=== PATIENT | female | born 1995 | race Caucasian/White ===

== ENCOUNTER 2016-09-04 14:15 | Inpatient (IN) | payer OTHER ==
[~2016-09-04] VITALS: Ht 172.7 cm; Wt 77.7 kg
[~2016-09-04 14:15] MED LIST: CITALOPRAM HBR20 MG PO; HYCODAN SYRUP480 ML PO; MACROBID100 MG PO; PRENATAL TABLE1 EAC3 PO; REGLAN10 MG PO
[2016-09-04 14:50] LABS: HEMATOCRIT 40.3 % (36.0-46.0); MCH 27.3 PG (29.0-34.0); MCHC 32.8 G/DL (30.0-36.0); MCV 83.4 FL (83-99); MEAN PLAT.VOLUME 8.5 uM^3 (9.5-12.4); PLATELET COUNT 423 K/uL (156-360); RBC DIS.WIDTH-CV 14.1 % (11.8-14.6); RBC DIS.WIDTH-SD 42.4 % (39-53); RED BLOOD COUNT 4.83 M/uL (3.80-5.20); WHITE BLOOD COUNT 8.6 K/uL (4.1-10.2)
[2016-09-04 15:00] LABS: CHLORIDE 104 mEq/L (99-109); SODIUM 137 mEq/L (136-147)
[2016-09-04 15:02] LABS: GLUCOSE 86 mg/dL (70-99)
[2016-09-04 15:03] LABS: ANION GAP 8 MEQ/L (2-14)
[2016-09-04 15:05] LABS: SERUM ETHYL ALCOHOL < 10 mg/dL
[2016-09-04 15:06] LABS: GFR ESTIMATE (CALCULATED) > 59 mL/min/
[2016-09-04 15:07] LABS: UREA NITROGEN (BUN) 10 mg/dL (9-23)
[2016-09-04] MEDS ORDERED: IBUPROFEN600 MG PO (15:45)
[2016-09-04 17:03] LABS: INTERNAL CONTROL VALID? YES
[2016-09-04 17:09] LABS: AMPHETAMINE NEGATIVE (500 ng/mL); BARBITURATES NEGATIVE (200 ng/mL); BENZODIAZEPINES NEGATIVE (150 ng/mL); COCAINE NEGATIVE (150 ng/mL); INTERNAL CONTROLS VALID? YES; METHADONE NEGATIVE (200 ng/mL); METHAMPHETAMINE NEGATIVE (500 ng/mL); OPIATES (MORPHINE) NEGATIVE (100 ng/mL); OXYCODONE NEGATIVE (100 ng/mL); PHENCYCLIDINE NEGATIVE (25 ng/mL); PROPOXYPHENE NEGATIVE (300 ng/mL); THC CANNABINOIDS PRESUMPTIVE POSITIVE (50 ng/mL); TRICYCLIC ANTIDEPRESSANTS NEGATIVE (300 ng/mL)
[2016-09-04 18:37] VITALS: BP 122/79
[2016-09-04] MEDS ORDERED: NICORETTE BC (19:51)
[2016-09-04] MEDS ORDERED: ZOLPIDEM TARTRAT5 MG PO (19:52)
[2016-09-05 08:06] VITALS: BP 123/73
[2016-09-05 16:37] VITALS: BP 133/90
[2016-09-06 07:59] VITALS: BP 104/59
[2016-09-06 15:48] VITALS: BP 134/77
[2016-09-07 07:34] VITALS: BP 133/63
[2016-09-07 15:34] VITALS: BP 121/50
[2016-09-08 07:44] VITALS: BP 113/53
[2016-09-08] MEDS ORDERED: AMOXICILLIN500 MG PO (09:41)
[2016-09-08] MEDS ORDERED: DULOXETINE HCL60 MG PO (09:41)
== END 2016-09-08 12:57 | disposition home or self-care (01) | DRG 885 ==
LOC: EME 14:15 → EDOF 15:36 → 1WEST 15:36
PROVIDERS: Emergency Medicine
DX: F33.9 Major depressive disorder, recurrent, unspecified (principal); K04.7 Periapical abscess without sinus; F19.10 Other psychoactive substance abuse, uncomplicated; F60.9 Personality disorder, unspecified; F12.90 Cannabis use, unspecified, uncomplicated
CPT/HCPCS: 80048; 84703; 85027; 90839; 97150 GO; 97166 GO; 99281; 99285; G0480; Q0177

== ENCOUNTER 2017-02-04 13:51 | Emergency (ER) | payer SELFPAY ==
[~2017-02-04] VITALS: Ht 172.7 cm; Wt 75.3 kg
[~2017-02-04 13:51] MED LIST changes: +AMOXICILLIN500 MG PO; +DULOXETINE HCL60 MG PO; +IBUPROFEN600 MG PO; +NICORETTE BC; +ZOLPIDEM TARTRAT5 MG PO
[2017-02-04 14:59] LABS: HEMATOCRIT 42.1 % (36.0-46.0); MCHC 34.2 G/DL (30.0-36.0); MCV 81.9 FL (83-99); MEAN PLAT.VOLUME 8.5 uM^3 (9.5-12.4); PLATELET COUNT 363 K/uL (156-360); RBC DIS.WIDTH-SD 38.9 % (39-53); RED BLOOD COUNT 5.14 M/uL (3.80-5.20); WHITE BLOOD COUNT 9.5 K/uL (4.1-10.2)
[2017-02-04 15:09] LABS: CHLORIDE 101 mEq/L (99-109); POTASSIUM 3.8 mEq/L (3.7-5.4); SODIUM 133 mEq/L (136-147)
[2017-02-04 15:12] LABS: GLUCOSE 87 mg/dL (70-99)
[2017-02-04 15:13] LABS: ANION GAP 11 MEQ/L (2-14); TOTAL BILIRUBIN 0.4 mg/dL (0.0-1.0)
[2017-02-04 15:15] LABS: ALKALINE PHOSPHATASE 59 IU/L (3-129); GFR ESTIMATE (CALCULATED) > 59 mL/min/
[2017-02-04 15:16] LABS: UREA NITROGEN (BUN) 5 mg/dL (9-23)
[2017-02-04 15:19] LABS: LIPASE 14 U/L (1.0-51.0)
[2017-02-04 15:48] LABS: QUANTITATIVE HCG 28718.9 MIU/ML
[2017-02-04] MEDS ORDERED: ZOFRAN ODT4 MG PO (15:54)
[2017-02-04 16:18] LABS: ADD MIUA? YES; BILIRUBIN NEGATIVE; BLOOD NEGATIVE; COLOR YELLOW ((YELLOW)); GLUCOSE (STRIP) NEGATIVE; KETONES 80; LEUKOCYTES NEGATIVE; NITRITE NEGATIVE; PROTEIN (STRIP) 100; SPECIFIC GRAVITY 1.033 (1.000-1.030); UROBILINOGEN 0.2 MG/DL (0.2-1.0)
[2017-02-04 16:26] LABS: BACTERIA RARE /HPF; EPITHELIAL CELLS RARE /HPF; MUCUS 3+ /LPF; WHITE BLOOD CELLS 0-5 /HPF (0-5)
[2017-02-04 17:15] VITALS: BP 133/82
== END 2017-02-04 17:22 | disposition home or self-care (01) ==
LOC: EME 13:51
PROVIDERS: Nurse Practitioner Family
DX: O21.0 Mild hyperemesis gravidarum (principal); O99.511 Diseases of the respiratory system complicating pregnancy, first trimester; J06.9 Acute upper respiratory infection, unspecified; J45.909 Unspecified asthma, uncomplicated; Z87.891 Personal history of nicotine dependence
CPT/HCPCS: 71020; 80053; 81003; 83690; 84702; 85027; 99281; 99285; J2405; J7030

== ENCOUNTER 2017-04-13 15:56 | Emergency (ER) | payer OTHER ==
[~2017-04-13] VITALS: Ht 172.7 cm; Wt 77.5 kg
[~2017-04-13 15:56] MED LIST changes: +ZOFRAN ODT4 MG PO
[2017-04-13 16:45] LABS: EOSINOPHIL (%) 0.4 % (0-5); EOSINOPHIL COUNT 0.1 K/uL (0-0.3); HEMATOCRIT 35.4 % (36.0-46.0); IMMATURE GRANULOCYTE (%) 0.6 % (0.0-0.7); IMMATURE GRANULOCYTE COUNT 0.1 K/uL; INSTRUMENT ABS NEUTROPHIL CT 9.5 K/uL; LYMPHOCYTE COUNT 2.9 K/uL (1.0-2.8); MCH 29.3 PG (29.0-34.0); MCHC 34.2 G/DL (30.0-36.0); MCV 85.7 FL (83-99); MEAN PLAT.VOLUME 8.9 uM^3 (9.5-12.4); MONOCYTE (%) 4.6 % (3-12); MONOCYTE COUNT 0.6 K/uL (0-0.8); NEUTROPHIL COUNT 9.5 K/uL (1.8-6.4); PLATELET COUNT 311 K/uL (156-360); RBC DIS.WIDTH-CV 13.5 % (11.8-14.6); RBC DIS.WIDTH-SD 42.5 % (39-53); RED BLOOD COUNT 4.13 M/uL (3.80-5.20); WHITE BLOOD COUNT 13.2 K/uL (4.1-10.2)
[2017-04-13 16:54] LABS: CHLORIDE 103 mEq/L (99-109); POTASSIUM 3.8 mEq/L (3.7-5.4); SODIUM 134 mEq/L (136-147)
[2017-04-13 16:56] LABS: GLUCOSE 75 mg/dL (70-99)
[2017-04-13 16:58] LABS: ANION GAP 10 MEQ/L (2-14); TOTAL BILIRUBIN 0.4 mg/dL (0.0-1.0)
[2017-04-13 17:00] LABS: ALKALINE PHOSPHATASE 49 IU/L (3-129); GFR ESTIMATE (CALCULATED) > 59 mL/min/
[2017-04-13 17:01] LABS: UREA NITROGEN (BUN) 7 mg/dL (9-23)
[2017-04-13 20:22] LABS: ADD MIUA? NO; BILIRUBIN NEGATIVE; BLOOD NEGATIVE; COLOR YELLOW ((YELLOW)); GLUCOSE (STRIP) NEGATIVE; KETONES 80; LEUKOCYTES NEGATIVE; NITRITE NEGATIVE; PROTEIN (STRIP) NEGATIVE; UCUL ADDED? NO; UROBILINOGEN 0.2 MG/DL (0.2-1.0)
[2017-04-13] MEDS ORDERED: ONDANSETRON ODT4 MG PO (20:37)
[2017-04-13 21:35] VITALS: BP 132/89
== END 2017-04-13 21:37 | disposition home or self-care (01) ==
LOC: EME 15:56
PROVIDERS: Emergency Medicine
DX: O21.0 Mild hyperemesis gravidarum (principal); R10.31 Right lower quadrant pain; R05 Cough; Z3A.21 21 weeks gestation of pregnancy; Z87.891 Personal history of nicotine dependence
CPT/HCPCS: 80053; 81003; 85025; 99281; 99285; J2405; J7030

== ENCOUNTER 2017-06-16 10:58 | Outpatient (CLI) | payer OTHER ==
[~2017-06-16 10:58] MED LIST changes: +ONDANSETRON ODT4 MG PO
[2017-06-16 11:20] VITALS: BP 112/65
[2017-06-16 12:47] LABS: BASOPHIL (%) 0.2 % (0-1); EOSINOPHIL (%) 0.6 % (0-5); EOSINOPHIL COUNT 0.1 K/uL (0-0.3); HEMATOCRIT 32.4 % (36.0-46.0); HEMOGLOBIN 10.8 G/DL (11.9-15.5); IMMATURE GRANULOCYTE (%) 0.5 % (0.0-0.7); LYMPHOCYTE (%) 22.2 % (15-42); LYMPHOCYTE COUNT 3.1 K/uL (1.0-2.8); MCH 28.4 PG (29.0-34.0); MCHC 33.3 G/DL (30.0-36.0); MCV 85.3 FL (83-99); MONOCYTE (%) 4.8 % (3-12); MONOCYTE COUNT 0.7 K/uL (0-0.8); NEUTROPHIL (%) 71.7 % (45-76); PLATELET COUNT 280 K/uL (156-360); RBC DIS.WIDTH-CV 12.9 % (11.8-14.6); RBC DIS.WIDTH-SD 40.2 % (39-53)
[2017-06-16 13:33] LABS: BENZODIAZEPINES, URINE SCREEN Negative (200 ng/mL)
[2017-06-16 15:22] VITALS: BP 115/57
== END 2017-06-16 16:30 | disposition home or self-care (01) ==
LOC: LDRP-OP 10:58 → 2WEST 10:59
PROVIDERS: Advanced Practice Midwife
DX: O99.89 Other specified diseases and conditions complicating pregnancy, childbirth and the puerperium (principal); O99.343 Other mental disorders complicating pregnancy, third trimester; F41.8 Other specified anxiety disorders; Z87.891 Personal history of nicotine dependence
CPT/HCPCS: 59025; 80306 90; 81003; 85025; 87502; G0378; J7030

== ENCOUNTER 2017-07-13 10:45 | Outpatient (CLI) | payer OTHER ==
[2017-07-13 10:47] VITALS: BP 139/65
[2017-07-13 11:25] LABS: APPEARANCE CLOUDY ((CLEAR)); BILIRUBIN NEGATIVE; BLOOD NEGATIVE; COLOR YELLOW ((YELLOW)); GLUCOSE (STRIP) NEGATIVE; KETONES NEGATIVE; LEUKOCYTES TRACE; NITRITE NEGATIVE; PROTEIN (STRIP) 30; SPECIFIC GRAVITY 1.018 (1.000-1.030); UROBILINOGEN 0.2 MG/DL (0.2-1.0)
[2017-07-13 11:45] LABS: AMORPHOUS PHOSPHATE CRYSTALS 3+; BACTERIA 2+ /HPF; EPITHELIAL CELLS 3+ /HPF; MUCUS NONE SEEN /LPF; RED BLOOD CELLS 0-5 /HPF (0-5); UCUL ADDED? YES; WHITE BLOOD CELLS 0-5 /HPF (0-5)
[2017-07-13 11:59] LABS: AMPHETAMINE NEGATIVE (500 ng/mL); BARBITURATES NEGATIVE (200 ng/mL); BENZODIAZEPINES NEGATIVE (150 ng/mL); BUPRENORPHINE NEGATIVE (10 ng/mL); COCAINE NEGATIVE (150 ng/mL); METHADONE NEGATIVE (200 ng/mL); METHAMPHETAMINE NEGATIVE (500 ng/mL); OPIATES (MORPHINE) NEGATIVE (100 ng/mL); OXYCODONE NEGATIVE (100 ng/mL); PHENCYCLIDINE NEGATIVE (25 ng/mL); PROPOXYPHENE NEGATIVE (300 ng/mL); THC CANNABINOIDS PRESUMPTIVE POSITIVE (50 ng/mL); TRICYCLIC ANTIDEPRESSANTS NEGATIVE (300 ng/mL)
[2017-07-13 12:20] LABS: BASOPHIL (%) 0.2 % (0-1); EOSINOPHIL (%) 0.4 % (0-5); EOSINOPHIL COUNT 0.1 K/uL (0-0.3); HEMATOCRIT 34.8 % (36.0-46.0); HEMOGLOBIN 11.4 G/DL (11.9-15.5); IMMATURE GRANULOCYTE (%) 0.5 % (0.0-0.7); LYMPHOCYTE (%) 22.6 % (15-42); LYMPHOCYTE COUNT 2.9 K/uL (1.0-2.8); MCH 27.5 PG (29.0-34.0); MCHC 32.8 G/DL (30.0-36.0); MCV 84.1 FL (83-99); MONOCYTE (%) 5.7 % (3-12); MONOCYTE COUNT 0.7 K/uL (0-0.8); NEUTROPHIL (%) 70.6 % (45-76); PLATELET COUNT 304 K/uL (156-360); RBC DIS.WIDTH-CV 13.1 % (11.8-14.6); RBC DIS.WIDTH-SD 39.9 % (39-53); RED BLOOD COUNT 4.14 M/uL (3.80-5.20); WHITE BLOOD COUNT 12.7 K/uL (4.1-10.2)
[2017-07-13] MEDS ORDERED: CYCLOBENZAPRINE10 MG PO (12:26)
[2017-07-13] MEDS ORDERED: KEFLEX500 MG PO (12:26)
[2017-07-13 12:50] LABS: ALBUMIN 3.4 G/DL (3.2-4.8); ALKALINE PHOSPHATASE 115 IU/L (3-129); ALT (GPT) 9 IU/L (3-49); AST (GOT) 14 IU/L (2-34); CHLORIDE 103 MEQ/L (99-109); CREATININE 0.4 MG/DL (0.6-1.3); GFR ESTIMATE (CALCULATED) > 59 mL/min/; GLUCOSE 80 mg/dL (70-99); SODIUM 136 MEQ/L (136-147); TOTAL BILIRUBIN 0.4 MG/DL (0.0-1.0); TOTAL PROTEIN 6.3 G/DL (6.4-8.3); UREA NITROGEN (BUN) 7 mg/dL (9-23)
== END 2017-07-13 15:15 | disposition home or self-care (01) ==
LOC: LDRP-OP 10:45 → 2WEST 10:46 → LDRP-OP 09-18 20:18
PROVIDERS: Obstetrics & Gynecology
DX: O99.89 Other specified diseases and conditions complicating pregnancy, childbirth and the puerperium (principal); M54.2 Cervicalgia; M25.512 Pain in left shoulder; M54.5 Low back pain; M79.605 Pain in left leg; O26.893 Other specified pregnancy related conditions, third trimester; R05 Cough; Z3A.34 34 weeks gestation of pregnancy; O09.33 Supervision of pregnancy with insufficient antenatal care, third trimester; O99.323 Drug use complicating pregnancy, third trimester; F12.90 Cannabis use, unspecified, uncomplicated; Z91.410 Personal history of adult physical and sexual abuse; O99.343 Other mental disorders complicating pregnancy, third trimester; F32.9 Major depressive disorder, single episode, unspecified
CPT/HCPCS: 59025; 71046; 80053; 81003; 84999; 85025; 87086; G0378

== ENCOUNTER 2017-07-18 11:15 | Outpatient (CLI) | payer OTHER ==
[~2017-07-18] VITALS: Ht 172.7 cm; Wt 62.3 kg
[~2017-07-18 11:15] MED LIST changes: +CYCLOBENZAPRINE10 MG PO; +KEFLEX500 MG PO
[2017-07-18 15:15] VITALS: BP 109/55
[2017-07-18 15:16] LABS: BASOPHIL (%) 0.2 % (0-1); EOSINOPHIL (%) 0.5 % (0-5); EOSINOPHIL COUNT 0.1 K/uL (0-0.3); HEMATOCRIT 31.4 % (36.0-46.0); HEMOGLOBIN 10.5 G/DL (11.9-15.5); IMMATURE GRANULOCYTE (%) 0.6 % (0.0-0.7); LYMPHOCYTE (%) 25.4 % (15-42); LYMPHOCYTE COUNT 3.2 K/uL (1.0-2.8); MCH 28.3 PG (29.0-34.0); MCHC 33.4 G/DL (30.0-36.0); MCV 84.6 FL (83-99); MONOCYTE (%) 5.9 % (3-12); MONOCYTE COUNT 0.8 K/uL (0-0.8); NEUTROPHIL (%) 67.4 % (45-76); NEUTROPHIL COUNT 8.6 K/uL (1.8-6.4); PLATELET COUNT 289 K/uL (156-360); RBC DIS.WIDTH-CV 13.4 % (11.8-14.6); RBC DIS.WIDTH-SD 41.4 % (39-53); RED BLOOD COUNT 3.71 M/uL (3.80-5.20); WHITE BLOOD COUNT 12.7 K/uL (4.1-10.2)
== END 2017-07-18 18:30 | disposition home or self-care (01) ==
LOC: EME 11:15 → LDRP-OP 11:15 → EME 14:26 → EDSTATUS 14:27 → 2WEST 14:28
PROVIDERS: Nurse Practitioner
DX: O9A.213 Injury, poisoning and certain other consequences of external causes complicating pregnancy, third trimester (principal); O99.513 Diseases of the respiratory system complicating pregnancy, third trimester; S16.1XXA Strain of muscle, fascia and tendon at neck level, initial encounter; S30.0XXA Contusion of lower back and pelvis, initial encounter; Z3A.35 35 weeks gestation of pregnancy; J45.909 Unspecified asthma, uncomplicated; Z87.891 Personal history of nicotine dependence; W10.9XXA Fall (on) (from) unspecified stairs and steps, initial encounter
CPT/HCPCS: 59025; 72040; 72100; 72125; 76815; 85025; 85460; 99281; 99285; G0378

== ENCOUNTER 2017-07-20 13:07 | Inpatient (IN) | payer OTHER ==
[~2017-07-20] VITALS: Ht 172.7 cm; Wt 73.4 kg
[2017-07-20 13:42] LABS: HEMATOCRIT 33.5 % (36.0-46.0); HEMOGLOBIN 11.4 G/DL (11.9-15.5); MCH 28.5 PG (29.0-34.0); MCV 83.8 FL (83-99); PLATELET COUNT 292 K/uL (156-360); RBC DIS.WIDTH-CV 13.4 % (11.8-14.6); RBC DIS.WIDTH-SD 41.1 % (39-53); WHITE BLOOD COUNT 13.2 K/uL (4.1-10.2)
[2017-07-20 13:57] LABS: CHLORIDE 106 mEq/L (99-109); POTASSIUM 3.8 mEq/L (3.7-5.4); SODIUM 135 mEq/L (136-147)
[2017-07-20 13:58] LABS: GLUCOSE 73 mg/dL (70-99)
[2017-07-20 14:02] LABS: CREATININE 0.6 mg/dL (0.6-1.3); GFR ESTIMATE (CALCULATED) > 59 mL/min/; SERUM ETHYL ALCOHOL < 10 mg/dL
[2017-07-20 14:03] LABS: UREA NITROGEN (BUN) 4 mg/dL (9-23)
[2017-07-20 15:15] LABS: COCAINE NEGATIVE (150 ng/mL); PHENCYCLIDINE NEGATIVE (25 ng/mL); THC CANNABINOIDS PRESUMPTIVE POSITIVE (50 ng/mL)
[2017-07-20 15:16] LABS: AMPHETAMINE NEGATIVE (500 ng/mL); BARBITURATES NEGATIVE (200 ng/mL); BENZODIAZEPINES NEGATIVE (150 ng/mL); BUPRENORPHINE NEGATIVE (10 ng/mL); METHADONE NEGATIVE (200 ng/mL); METHAMPHETAMINE NEGATIVE (500 ng/mL); OPIATES (MORPHINE) NEGATIVE (100 ng/mL); OXYCODONE NEGATIVE (100 ng/mL); PROPOXYPHENE NEGATIVE (300 ng/mL); TRICYCLIC ANTIDEPRESSANTS PRESUMPTIVE POSITIVE (300 ng/mL)
[2017-07-20 16:33] VITALS: BP 122/84
[2017-07-20] MEDS ORDERED: CELEXA10 MG PO (16:41)
[2017-07-20] MEDS ORDERED: TRAZODONE HCL50 MG PO (16:43)
[2017-07-20 16:44] VITALS: BP 122/84
[2017-07-21 09:41] VITALS: BP 120/67
[2017-07-21 16:19] VITALS: BP 117/56
[2017-07-22 08:02] VITALS: BP 116/59
[2017-07-22] MEDS ORDERED: PROMETHAZINE HC25 M1 PO (09:12)
[2017-07-22] MEDS ORDERED: CITALOPRAM HBR10 MG PO (09:12)
[2017-07-22] MEDS ORDERED: PRENATAL VITAM1 EAC6 PO (09:12)
== END 2017-07-22 10:55 | disposition home or self-care (01) | DRG 781 ==
LOC: EME 13:07 → EDOF 14:46 → 1WEST 14:46 → ENRESERV 16:10 → 1WEST 16:22
PROVIDERS: Emergency Medicine Emergency Medical Services
DX: O99.343 Other mental disorders complicating pregnancy, third trimester (principal); F33.0 Major depressive disorder, recurrent, mild; R45.851 Suicidal ideations; F60.3 Borderline personality disorder; R44.0 Auditory hallucinations; Z91.14 Patient's other noncompliance with medication regimen; O99.323 Drug use complicating pregnancy, third trimester; F12.90 Cannabis use, unspecified, uncomplicated; O99.513 Diseases of the respiratory system complicating pregnancy, third trimester; J45.909 Unspecified asthma, uncomplicated; O99.353 Diseases of the nervous system complicating pregnancy, third trimester; G43.909 Migraine, unspecified, not intractable, without status migrainosus; O99.89 Other specified diseases and conditions complicating pregnancy, childbirth and the puerperium; M54.9 Dorsalgia, unspecified; Z87.891 Personal history of nicotine dependence; Z91.419 Personal history of unspecified adult abuse
CPT/HCPCS: 80048; 84999; 85027; 90837; 97150 GO; 97166 GO; 99281; 99284; G0480; Q0169

== ENCOUNTER 2017-08-01 12:35 | Emergency (ER) | payer OTHER ==
[~2017-08-01] VITALS: Ht 172.7 cm; Wt 81.6 kg
[~2017-08-01 12:35] MED LIST changes: +CELEXA10 MG PO; +CITALOPRAM HBR10 MG PO; +PRENATAL VITAM1 EAC6 PO; +PROMETHAZINE HC25 M1 PO; +TRAZODONE HCL50 MG PO
[2017-08-01 15:44] VITALS: BP 117/70
== END 2017-08-01 15:50 | disposition home or self-care (01) ==
LOC: EME 12:35
DX: O99.343 Other mental disorders complicating pregnancy, third trimester (principal); F33.2 Major depressive disorder, recurrent severe without psychotic features; F43.9 Reaction to severe stress, unspecified; O99.323 Drug use complicating pregnancy, third trimester; F12.20 Cannabis dependence, uncomplicated; Z04.6 Encounter for general psychiatric examination, requested by authority; Z3A.37 37 weeks gestation of pregnancy; O99.513 Diseases of the respiratory system complicating pregnancy, third trimester; J45.909 Unspecified asthma, uncomplicated; Z87.891 Personal history of nicotine dependence
CPT/HCPCS: 90837; 99281; 99283

== ENCOUNTER 2017-08-06 19:11 | Outpatient (CLI) | payer OTHER ==
[2017-08-06 19:12] VITALS: BP 119/67
== END 2017-08-06 21:20 | disposition home or self-care (01) ==
LOC: LDRP-OP → 2WEST 19:12 → LDRP-OP 09-18 15:45
DX: O99.613 Diseases of the digestive system complicating pregnancy, third trimester (principal); K52.9 Noninfective gastroenteritis and colitis, unspecified; Z3A.38 38 weeks gestation of pregnancy
CPT/HCPCS: 59025; G0378; J2405; J7120

== ENCOUNTER 2017-08-22 12:07 | Outpatient (CLI) | payer OTHER ==
[2017-08-22 12:28] VITALS: BP 124/64
[2017-08-22 13:55] LABS: BASOPHIL (%) 0.3 % (0-1); EOSINOPHIL (%) 0.3 % (0-5); HEMATOCRIT 32.4 % (36.0-46.0); HEMOGLOBIN 10.7 G/DL (11.9-15.5); IMMATURE GRANULOCYTE (%) 0.4 % (0.0-0.7); LYMPHOCYTE (%) 26.8 % (15-42); LYMPHOCYTE COUNT 3.7 K/uL (1.0-2.8); MCH 27.3 PG (29.0-34.0); MCV 82.7 FL (83-99); MONOCYTE (%) 5.9 % (3-12); MONOCYTE COUNT 0.8 K/uL (0-0.8); NEUTROPHIL (%) 66.3 % (45-76); PLATELET COUNT 294 K/uL (156-360); RBC DIS.WIDTH-CV 14.4 % (11.8-14.6); RBC DIS.WIDTH-SD 42.9 % (39-53); RED BLOOD COUNT 3.92 M/uL (3.80-5.20); WHITE BLOOD COUNT 13.7 K/uL (4.1-10.2)
[2017-08-22 14:06] LABS: CHLORIDE 104 MEQ/L (99-109); POTASSIUM 4.3 MEQ/L (3.7-5.4); SODIUM 134 MEQ/L (136-147); TOTAL BILIRUBIN 0.4 MG/DL (0.0-1.0)
[2017-08-22 14:12] LABS: ALKALINE PHOSPHATASE 138 IU/L (3-129); ALT (GPT) 7 IU/L (3-49); AST (GOT) 14 IU/L (2-34); CREATININE 0.5 MG/DL (0.6-1.3); GFR ESTIMATE (CALCULATED) > 59 mL/min/; GLUCOSE 69 mg/dL (70-99); TOTAL PROTEIN 5.5 G/DL (6.4-8.3); UREA NITROGEN (BUN) 9 mg/dL (9-23)
[2017-08-22 14:34] LABS: APPEARANCE CLOUDY ((CLEAR)); BILIRUBIN NEGATIVE; BLOOD NEGATIVE; COLOR YELLOW ((YELLOW)); GLUCOSE (STRIP) NEGATIVE; KETONES NEGATIVE; LEUKOCYTES NEGATIVE; NITRITE NEGATIVE; PROTEIN (STRIP) 100; UROBILINOGEN 0.2 MG/DL (0.2-1.0)
[2017-08-22 14:35] VITALS: BP 121/65
[2017-08-22 14:59] LABS: BACTERIA 1+ /HPF; EPITHELIAL CELLS 2+ /HPF; MUCUS RARE /LPF; RED BLOOD CELLS NONE SEEN /HPF (0-5); UCUL ADDED? NO; WHITE BLOOD CELLS 0-5 /HPF (0-5)
== END 2017-08-22 16:00 | disposition home or self-care (01) ==
LOC: LDRP-OP → 2WEST 12:08 → LDRP-OP 09-18 22:05
PROVIDERS: Midwife
DX: O21.2 Late vomiting of pregnancy (principal); O99.343 Other mental disorders complicating pregnancy, third trimester; Z3A.40 40 weeks gestation of pregnancy; F41.9 Anxiety disorder, unspecified; F32.9 Major depressive disorder, single episode, unspecified; Z91.5 Personal history of self-harm; Z87.891 Personal history of nicotine dependence; F11.11 Opioid abuse, in remission
CPT/HCPCS: 59025; 80053; 81003; 85025; G0378; J2405; J7120

== ENCOUNTER 2017-08-24 10:53 | Inpatient (IN) | payer OTHER ==
[2017-08-24] VITALS (10 sets, daily range): BP systolic 94–125; BP diastolic 52–75
[~2017-08-24] VITALS: Ht 172.7 cm; Wt 80.7 kg
[2017-08-24 12:28] LABS: BASOPHIL (%) 0.2 % (0-1); EOSINOPHIL (%) 0.2 % (0-5); HEMATOCRIT 36.4 % (36.0-46.0); HEMOGLOBIN 11.8 G/DL (11.9-15.5); IMMATURE GRANULOCYTE (%) 0.5 % (0.0-0.7); LYMPHOCYTE (%) 23.8 % (15-42); LYMPHOCYTE COUNT 2.6 K/uL (1.0-2.8); MCH 26.6 PG (29.0-34.0); MCHC 32.4 G/DL (30.0-36.0); MONOCYTE (%) 3.9 % (3-12); MONOCYTE COUNT 0.4 K/uL (0-0.8); NEUTROPHIL (%) 71.4 % (45-76); NEUTROPHIL COUNT 7.9 K/uL (1.8-6.4); PLATELET COUNT 333 K/uL (156-360); RBC DIS.WIDTH-SD 41.5 % (39-53); RED BLOOD COUNT 4.44 M/uL (3.80-5.20); WHITE BLOOD COUNT 11.1 K/uL (4.1-10.2)
[2017-08-24 13:28] LABS: AMPHETAMINE NEGATIVE (500 ng/mL); BARBITURATES NEGATIVE (200 ng/mL); BENZODIAZEPINES NEGATIVE (150 ng/mL); BUPRENORPHINE NEGATIVE (10 ng/mL); COCAINE NEGATIVE (150 ng/mL); METHADONE NEGATIVE (200 ng/mL); METHAMPHETAMINE NEGATIVE (500 ng/mL); OPIATES (MORPHINE) NEGATIVE (100 ng/mL); OXYCODONE NEGATIVE (100 ng/mL); PHENCYCLIDINE NEGATIVE (25 ng/mL); PROPOXYPHENE NEGATIVE (300 ng/mL); THC CANNABINOIDS PRESUMPTIVE POSITIVE (50 ng/mL); TRICYCLIC ANTIDEPRESSANTS NEGATIVE (300 ng/mL)
[2017-08-25] VITALS (24 sets, daily range): BP systolic 98–136; BP diastolic 52–84
[2017-08-25] MEDS ORDERED: IBUPROFEN800 MG PO (13:26)
[2017-08-27 07:06] VITALS: BP 126/80
[2017-08-27] MEDS ORDERED: CITALOPRAM HBR10 MG PO (09:07)
== END 2017-08-27 14:11 | disposition home or self-care (01) | DRG 775 ==
LOC: LDRP-OP 10:53 → 2WEST 10:54 → LDRP-OP 08-25 08:02 → 2WEST 08-25 13:06 → LDRP-OP 09-18 17:02
PROVIDERS: Nurse Practitioner
DX: O70.0 First degree perineal laceration during delivery (principal); O48.0 Post-term pregnancy; O99.344 Other mental disorders complicating childbirth; F32.9 Major depressive disorder, single episode, unspecified; F41.9 Anxiety disorder, unspecified; O99.324 Drug use complicating childbirth; F12.90 Cannabis use, unspecified, uncomplicated; Z3A.40 40 weeks gestation of pregnancy; Z37.0 Single live birth; Z87.891 Personal history of nicotine dependence
CPT/HCPCS: 59025; 80053; 81003; 84999; 85025; C1755; G0378; J2405; J3010; J7120

== ENCOUNTER 2017-09-23 16:16 | Inpatient (IN) | payer OTHER ==
[~2017-09-23] VITALS: Ht 172.7 cm; Wt 74.7 kg
[~2017-09-23 16:16] MED LIST changes: +IBUPROFEN800 MG PO
[2017-09-23 18:25] LABS: HEMATOCRIT 34.5 % (36.0-46.0); HEMOGLOBIN 11.5 G/DL (11.9-15.5); MCH 27.2 PG (29.0-34.0); MCHC 33.3 G/DL (30.0-36.0); MCV 81.6 FL (83-99); PLATELET COUNT 318 K/uL (156-360); RBC DIS.WIDTH-CV 15.6 % (11.8-14.6); RBC DIS.WIDTH-SD 46.3 % (39-53); RED BLOOD COUNT 4.23 M/uL (3.80-5.20)
[2017-09-23 18:33] LABS: CHLORIDE 108 mEq/L (99-109); POTASSIUM 3.7 mEq/L (3.7-5.4); SODIUM 140 mEq/L (136-147)
[2017-09-23 18:35] LABS: GLUCOSE 106 mg/dL (70-99)
[2017-09-23 18:38] LABS: SERUM ETHYL ALCOHOL < 10 mg/dL
[2017-09-23 18:39] LABS: CREATININE 0.7 mg/dL (0.6-1.3); GFR ESTIMATE (CALCULATED) > 59 mL/min/
[2017-09-23 18:40] LABS: UREA NITROGEN (BUN) 13 mg/dL (9-23)
[2017-09-23 18:42] LABS: ACETAMINOPHEN (TYLENOL) < 10 mcg/mL (10-30); SALICYLATE < 5.0 MG/DL (15-30)
[2017-09-23 18:44] LABS: AMPHETAMINE NEGATIVE (500 ng/mL); BARBITURATES NEGATIVE (200 ng/mL); BENZODIAZEPINES NEGATIVE (150 ng/mL); BUPRENORPHINE NEGATIVE (10 ng/mL); COCAINE NEGATIVE (150 ng/mL); METHADONE NEGATIVE (200 ng/mL); METHAMPHETAMINE NEGATIVE (500 ng/mL); OPIATES (MORPHINE) NEGATIVE (100 ng/mL); OXYCODONE NEGATIVE (100 ng/mL); PHENCYCLIDINE NEGATIVE (25 ng/mL); PROPOXYPHENE NEGATIVE (300 ng/mL); THC CANNABINOIDS PRESUMPTIVE POSITIVE (50 ng/mL); TRICYCLIC ANTIDEPRESSANTS NEGATIVE (300 ng/mL)
[2017-09-23 21:16] VITALS: BP 110/70
[2017-09-24 09:15] VITALS: BP 107/55
[2017-09-24 16:40] VITALS: BP 134/63
[2017-09-25 09:13] VITALS: BP 105/62
[2017-09-25 16:31] VITALS: BP 98/73
[2017-09-26 07:57] VITALS: BP 113/52
[2017-09-26 16:15] VITALS: BP 128/61
[2017-09-27 07:38] VITALS: BP 123/70
[2017-09-27] MEDS ORDERED: VENLAFAXINE HCL75 M3 PO (09:29)
[2017-09-27] MEDS ORDERED: TRAZODONE HCL50 MG PO (09:29)
== END 2017-09-27 11:58 | disposition home or self-care (01) | DRG 885 ==
LOC: EME 16:16 → 1WEST 19:26 → EDOF 19:26 → ENRESERV 21:02 → 1WEST 21:07
PROVIDERS: Emergency Medicine
DX: F33.9 Major depressive disorder, recurrent, unspecified (principal); R45.851 Suicidal ideations; F12.20 Cannabis dependence, uncomplicated; F60.3 Borderline personality disorder; G47.00 Insomnia, unspecified; F41.9 Anxiety disorder, unspecified; F60.9 Personality disorder, unspecified; Z87.891 Personal history of nicotine dependence; Z91.5 Personal history of self-harm; Z56.0 Unemployment, unspecified; Z91.14 Patient's other noncompliance with medication regimen; Z81.8 Family history of other mental and behavioral disorders
CPT/HCPCS: 80048; 84999; 85027; 90837; 97150 GO; 97165 GO; 99281; 99284; G0480; Q0177

== ENCOUNTER 2017-10-10 17:52 | Emergency (ER) | payer OTHER ==
[~2017-10-10] VITALS: Ht 172.7 cm; Wt 74.0 kg
[~2017-10-10 17:52] MED LIST changes: +VENLAFAXINE HCL75 M3 PO
[2017-10-10 18:49] LABS: AMPHETAMINE NEGATIVE (500 ng/mL); BARBITURATES NEGATIVE (200 ng/mL); BENZODIAZEPINES NEGATIVE (150 ng/mL); BUPRENORPHINE NEGATIVE (10 ng/mL); COCAINE NEGATIVE (150 ng/mL); METHADONE NEGATIVE (200 ng/mL); METHAMPHETAMINE NEGATIVE (500 ng/mL); OPIATES (MORPHINE) NEGATIVE (100 ng/mL); OXYCODONE NEGATIVE (100 ng/mL); PHENCYCLIDINE NEGATIVE (25 ng/mL); PROPOXYPHENE NEGATIVE (300 ng/mL); THC CANNABINOIDS PRESUMPTIVE POSITIVE (50 ng/mL); TRICYCLIC ANTIDEPRESSANTS NEGATIVE (300 ng/mL)
[2017-10-10 18:54] LABS: BASOPHIL (%) 0.3 % (0-1); EOSINOPHIL (%) 1.3 % (0-5); EOSINOPHIL COUNT 0.2 K/uL (0-0.3); HEMATOCRIT 35.5 % (36.0-46.0); HEMOGLOBIN 11.8 G/DL (11.9-15.5); IMMATURE GRANULOCYTE (%) 0.3 % (0.0-0.7); LYMPHOCYTE (%) 31.7 % (15-42); LYMPHOCYTE COUNT 3.8 K/uL (1.0-2.8); MCH 27.2 PG (29.0-34.0); MCHC 33.2 G/DL (30.0-36.0); MCV 81.8 FL (83-99); MONOCYTE (%) 5.2 % (3-12); MONOCYTE COUNT 0.6 K/uL (0-0.8); NEUTROPHIL (%) 61.2 % (45-76); NEUTROPHIL COUNT 7.3 K/uL (1.8-6.4); PLATELET COUNT 395 K/uL (156-360); RBC DIS.WIDTH-CV 15.3 % (11.8-14.6); RBC DIS.WIDTH-SD 46.5 % (39-53); RED BLOOD COUNT 4.34 M/uL (3.80-5.20)
[2017-10-10 19:04] LABS: ALBUMIN 3.9 g/dL (3.2-4.8); CHLORIDE 104 mEq/L (99-109); POTASSIUM 3.9 mEq/L (3.7-5.4); SODIUM 137 mEq/L (136-147)
[2017-10-10 19:07] LABS: GLUCOSE 98 mg/dL (70-99); TOTAL PROTEIN 7.1 g/dL (6.4-8.3)
[2017-10-10 19:09] LABS: TOTAL BILIRUBIN 0.4 mg/dL (0.0-1.0)
[2017-10-10 19:10] LABS: CREATININE 0.7 mg/dL (0.6-1.3); GFR ESTIMATE (CALCULATED) > 59 mL/min/; SERUM ETHYL ALCOHOL < 10 mg/dL
[2017-10-10 19:11] LABS: ALKALINE PHOSPHATASE 89 IU/L (3-129)
[2017-10-10 19:12] LABS: AST (GOT) 25 IU/L (2-34); UREA NITROGEN (BUN) 13 mg/dL (9-23)
[2017-10-10 19:14] LABS: ACETAMINOPHEN (TYLENOL) < 10 mcg/mL (10-30); ALT (GPT) 32 IU/L (3-49); SALICYLATE < 5.0 MG/DL (15-30)
[2017-10-10 19:23] LABS: QUANTITATIVE HCG < 4.0 MIU/ML
[2017-10-11 14:15] VITALS: BP 126/76
== END 2017-10-11 15:18 ==
LOC: EME 17:52
PROVIDERS: Emergency Medicine
DX: F33.2 Major depressive disorder, recurrent severe without psychotic features (principal); R45.851 Suicidal ideations; F19.10 Other psychoactive substance abuse, uncomplicated; F60.3 Borderline personality disorder; J45.909 Unspecified asthma, uncomplicated; F17.200 Nicotine dependence, unspecified, uncomplicated
CPT/HCPCS: 80053; 84702; 84999; 85025; 90837; 94640; 99281; 99284; G0480